=== PATIENT | male | born 1970 | race Native Hawaiian/Other Pacific Islander ===

== ENCOUNTER 2017-10-18 15:02 | Emergency (ER) | payer OTHER ==
[~2017-10-18] VITALS: Ht 185.4 cm; Wt 131.5 kg
[2017-10-18 15:05] VITALS: TEMP 98.1
[2017-10-18 15:26] LABS: PLATELET COUNT 188 K/uL (142-355)
[2017-10-18 15:32] LABS: POTASSIUM 3.8 mmol/L (3.6-5.2); SODIUM 136 mmol/L (136-145)
[2017-10-18] MEDS ORDERED: CALAN SR120 MG PO (15:34)
[2017-10-18] MEDS ORDERED: ASPIR-8181 MG PO (15:35)
[2017-10-18] MEDS ORDERED: CLON0.1T16 PO (15:36)
[2017-10-18] MEDS ORDERED: LOVASTATIN20 MG OR (15:36)
[2017-10-18] MEDS ORDERED: METFORMIN HYDR850 MG PO (15:37)
[2017-10-18] MEDS ORDERED: LISI20TA11 PO (15:38)
[2017-10-18] MEDS ORDERED: LISITAB PO ×2 (15:38→15:39)
[2017-10-18 15:46] LABS: PARTIAL THROMBOPLASTIN TIME 28.1 SECONDS (24.5-33.6)
[2017-10-18 17:26] VITALS: BP 113/55
== END 2017-10-18 17:26 | disposition home or self-care (01) ==
LOC: ED 15:02
PROVIDERS: Family Medicine
DX: I48.91 Unspecified atrial fibrillation (principal); I48.92 Unspecified atrial flutter
CPT/HCPCS: 36415; 80053; 84443; 84484; 85027; 85610; 85730; 93005; 96372; 96374; 96375; 99284; J1650; J2175; J2405; J3490

== ENCOUNTER 2017-10-23 15:09 | Outpatient (CLI) | payer OTHER ==
[~2017-10-23 15:09] MED LIST: ASPIR-8181 MG PO; CALAN SR120 MG PO; CLON0.1T16 PO; LISI20TA11 PO; LISITAB PO; LOVASTATIN20 MG OR; METFORMIN HYDR850 MG PO
== END 2017-10-23 15:13 | disposition short-term general hospital (02) ==
LOC: AMB 15:09
DX: S01.01XA Laceration without foreign body of scalp, initial encounter (principal); V59.49XA Driver of pick-up truck or van injured in collision with other motor vehicles in traffic accident, initial encounter; Y92.488 Other paved roadways as the place of occurrence of the external cause
CPT/HCPCS: A0425; A0427

== ENCOUNTER 2017-10-23 15:28 | Emergency (ER) | payer OTHER ==
[~2017-10-23] VITALS: Ht 185.4 cm; Wt 108.9 kg
[2017-10-23 19:06] VITALS: BP 190/96; TEMP 98.4
== END 2017-10-23 19:10 | disposition home or self-care (01) ==
LOC: ED 15:28
PROC: 0HQ0XZZ Repair Scalp Skin, External Approach (ICD-10-PCS; principal; 2017-10-23)
DX: S00.93XA Contusion of unspecified part of head, initial encounter (principal); S01.01XA Laceration without foreign body of scalp, initial encounter; S16.1XXA Strain of muscle, fascia and tendon at neck level, initial encounter; V43.62XA Car passenger injured in collision with other type car in traffic accident, initial encounter
CPT/HCPCS: 96372; 99283; J1885

== ENCOUNTER 2018-01-15 14:45 | Emergency (ER) | payer OTHER ==
[~2018-01-15] VITALS: Ht 185.4 cm; Wt 113.4 kg
[2018-01-15 15:33] LABS: POTASSIUM 3.4 mmol/L (3.6-5.2)
[2018-01-15 15:37] LABS: PLATELET COUNT 171 K/uL (142-355)
[2018-01-15 19:31] VITALS: BP 156/81; TEMP 99.1
== END 2018-01-15 19:25 | disposition home or self-care (01) ==
LOC: ED 14:45
PROVIDERS: Specialist
DX: Z87.81 Personal history of (healed) traumatic fracture (principal); S20.219A Contusion of unspecified front wall of thorax, initial encounter
CPT/HCPCS: 36415; 36600; 80048; 82550; 82553; 82805; 83735; 84100; 84484; 85027; 85379; 93005; 99283

== ENCOUNTER 2018-11-07 10:02 | Emergency (ER) | payer OTHER ==
[~2018-11-07] VITALS: Ht 182.9 cm; Wt 111.1 kg
[2018-11-07] MEDS ORDERED: METFORMIN HYDR850 MG PO (10:24)
[2018-11-07] MEDS ORDERED: LISI20TA31 PO (10:26)
[2018-11-07 10:49] LABS: PLATELET COUNT 242 K/uL (142-355)
[2018-11-07 10:51] LABS: POTASSIUM 3.4 mmol/L (3.6-5.2)
[2018-11-07 11:10] LABS: PARTIAL THROMBOPLASTIN TIME 30.3 SECONDS (24.5-33.6)
[2018-11-07 12:05] VITALS: BP 143/77; TEMP 97.8
== END 2018-11-07 12:05 | disposition home or self-care (01) ==
LOC: ED 10:02
PROVIDERS: Emergency Medicine
DX: I47.1 Supraventricular tachycardia (principal)
CPT/HCPCS: 36415; 80053; 80307; 81000; 82550; 84484; 85027; 85610; 85730; 93005; 96360; 99284; J0153

== ENCOUNTER 2019-05-17 03:38 | Inpatient (IN) | payer OTHER ==
[~2019-05-17] VITALS: Ht 182.9 cm; Wt 107.0 kg
[2019-05-17] VITALS (56 sets, daily range): BP systolic 113–164; BP diastolic 59–113; TEMP 97.3–98.7; Ht 182.9 cm; Wt 107.0 kg
[~2019-05-17 03:38] MED LIST changes: +LISI20TA31 PO
[2019-05-17 04:21] LABS: PLATELET COUNT 191 K/uL (142-355)
[2019-05-17 04:32] LABS: POTASSIUM 3.3 mmol/L (3.6-5.2); SODIUM 140 mmol/L (136-145)
[2019-05-17 06:00] LABS: PARTIAL THROMBOPLASTIN TIME 26.4 SECONDS (24.5-33.6)
[2019-05-18] VITALS (16 sets, daily range): BP systolic 135–189; BP diastolic 69–105; TEMP 98.3–98.8
[2019-05-18 08:13] LABS: PLATELET COUNT 158 K/uL (142-355)
[2019-05-18 08:19] LABS: POTASSIUM 4.4 mmol/L (3.6-5.2)
== END 2019-05-18 17:50 | disposition left against medical advice (07) | DRG 310 ==
LOC: ED 03:38 → ICU 04:30 → MED/SURG 04:31 → ICU 04:32
PROVIDERS: Emergency Medicine; ADMIT Internal Medicine
DX: I48.91 Unspecified atrial fibrillation (principal); R07.89 Other chest pain; I25.2 Old myocardial infarction; I25.10 Atherosclerotic heart disease of native coronary artery without angina pectoris; I10 Essential (primary) hypertension; E11.9 Type 2 diabetes mellitus without complications
CPT/HCPCS: 36415; 80053; 82550; 83735; 84443; 84484; 85007; 85027; 85610; 85730; 93005; 96365; 96372; 96374; 96376; 99285; J3475; J3490

== ENCOUNTER 2019-11-03 22:25 | Observation (INO) | payer OTHER ==
[~2019-11-03] VITALS: Ht 182.9 cm; Wt 107.3 kg
[2019-11-03 22:32] VITALS: BP 153/98
[2019-11-03 23:00] VITALS: BP 157/83
[2019-11-03 23:06] LABS: PLATELET COUNT 166 K/uL (142-355)
[2019-11-03 23:09] LABS: POTASSIUM 3.7 mmol/L (3.6-5.2)
[2019-11-03 23:28] LABS: PARTIAL THROMBOPLASTIN TIME 27.6 SECONDS (24.5-33.6)
[2019-11-03 23:30] VITALS: BP 143/72
[2019-11-04] VITALS (8 sets, daily range): BP systolic 131–166; BP diastolic 63–97; TEMP 98–99.1; Ht 182.9 cm; Wt 107.3 kg
[2019-11-04] MEDS ORDERED: LISI20TA31 PO (03:20)
--- NOTE | 2019-11-04 03:20 | NUR ---
11/04/2019 0215 PT TO ROOM 1112 DX CHESTPAIN,PALPATATIONS WITH RVR.ORIENTED TO ROOM.CALL LIGHT WITHIN REACH.GIRLFRIEND PRESENT IN ROOM.20 GAUDGE INTACT TO RT ARM.CC
--- NOTE | 2019-11-04 05:13 | NUR ---
11/04/2019 RESTING ON LEFT SIDE WITH GIRLFRIEND BESIDE HIM RESP EVEN NONLABORED NAD NOTED.CALL LIGHT WITHIN REACH.
--- NOTE | 2019-11-04 07:16 | NUR ---
PATIENT WAS ADMITTED WITH CHEST PAIN, PALPITATIONS W RVR AND IS ON A 2 GM NA 1800 CALORIE DIET PLAN AND IS 6' AT 236.9 LBS. 49YOM, WITH A HISTORY OF DMII, UNCONTROLLED, HTN, AFIB, CONTUSION,, STRAIN OF JENNIFER, SCALP LACERATION, MIGRAINES, BUN, GL, T BILIRUBIN AND TROONIN ALL ELEVATED, REVIEWED ALL LABS, CARDIAC CATH, HEART ATTACH AND STENTS. IBW-178+/-10% (160 TO 196 LBS.) AND KCAL NEEDS X 25 TO 30 = 2000 TO 2400 AND UP TO X 40 = 3200 KCAL/DAY, PROTEIN NEEDS X 1.2 TO 1.5 = 97 TO 121 GRAMS A DAY AND FLUIDS FOR WEIGHT X 25 TO 30 = 2700 TO 3200 ML PER DAY BUT SINCE CARDIAC DX. MD SHOULD ORDER THE FLUIDS NEEDED. BMI = 32 CLASS I OBESITY AD IS 133% IBW. RECOMENDATIONS: 1-ADD VITAMIN C 500 MG BID 2-ADD ZNSO4 220 MG PER DAY AND D/C IN 14 DAYS 3-ADD CARDIAC TO DIET PLAN AND HIGH FIBER 4-INCREASE CALOREIS TO A MINIMUM OF 2000 CALORIES A DAY.
--- NOTE | 2019-11-04 09:00 | NUR ---
PATIENT UP IN ROOM, STATES "FEELING BETTER " HR 80'S A FIB. RECIEVED AM MEDS ORDERED. BLOOD SUGAR 196 DR DAS VISITED THIS AM.
--- NOTE | 2019-11-04 13:00 | NUR ---
UP IN ROOM ATE LUNCH, BLOOD SUGAR [address] DAS WILL ORDERS SLIDING SCALE INSULIN. PATIENT RESTING IN BED HOB UP WATCHING TV FAMILY MEMBERS ALSO RESTING IN BED.
--- NOTE | 2019-11-04 15:00 | NUR ---
REGULAR INSULIN SSI PULLED TO GIVE TO PATIENT EXPLAINED INSULIN TO PATIENT PATIENT STATED THAT HE HAD TAKEN HIS METFORMIN, WANTED TO WAIT AND RECHECK HIS BLOOD LATER BEFORE TAKING INSULIN. INSULIN HELD FOR NOW.
--- NOTE | 2019-11-04 15:26 | NUR ---
NOTED ON MONITOR PT HAD CONVERTED APPEARS NSR. EKG ORDERED. NO COMPLAINTS OF PAIN.
--- NOTE | 2019-11-04 18:02 | NUR ---
RECIEVED ORDERS FOR DISCHARGE, MADE COPIES DISCHARGE INSTRUCTIONS, PATIENT UP IN [place] GOING HOME WITH FAMILY MEMBERS REVIEWED DISCHARGE ORDERS WITH PATIENT WALKING DOWN [place] DISCHARGED HOME VIA PRIVATE CAR WITH FAMILY MEMBERS.
== END 2019-11-04 18:00 | disposition home or self-care (01) ==
LOC: ED 22:25 → MED/SURG 11-04 01:02
PROVIDERS: Family Medicine; ADMIT Internal Medicine Endocrinology, Diabetes & Metabolism
DX: I48.91 Unspecified atrial fibrillation (principal); I10 Essential (primary) hypertension; I25.10 Atherosclerotic heart disease of native coronary artery without angina pectoris; E11.65 Type 2 diabetes mellitus with hyperglycemia; Z72.0 Tobacco use
CPT/HCPCS: 80053; 81000; 82550; 84484; 85027; 85379; 85610; 85730; 93005; 94760; 96372; 96374; 99220; 99284; G0378; J1650; J1815; J3490

== ENCOUNTER 2020-01-04 22:27 | Observation (INO) | payer OTHER ==
[~2020-01-04] VITALS: Ht 182.9 cm; Wt 104.5 kg
[2020-01-04 22:42] VITALS: BP 222/123; TEMP 98.8
[2020-01-04] MEDS ORDERED: METOPROLOL25 M1 PO (22:44)
[2020-01-04 23:05] VITALS: BP 212/120
[2020-01-04 23:15] LABS: PLATELET COUNT 175 K/uL (142-355)
[2020-01-04 23:20] VITALS: BP 190/105
[2020-01-04 23:20] LABS: POTASSIUM 3.6 mmol/L (3.6-5.2); SODIUM 140 mmol/L (136-145)
[2020-01-04 23:45] VITALS: BP 157/81
[2020-01-05 00:38] VITALS: BP 143/77; TEMP 98.5
[2020-01-05] MEDS ORDERED: METOPROLOL25 M1 PO (02:35)
[2020-01-05] MEDS ORDERED: LISI20TA31 PO (02:37)
[2020-01-05 02:52] VITALS: BP 143/77; TEMP 98.5; Ht 182.9 cm; Wt 104.5 kg
[2020-01-05 04:00] VITALS: BP 128/68; TEMP 98.9
[2020-01-05 08:00] VITALS: BP 122/72; TEMP 98.6
[2020-01-05 12:00] VITALS: BP 134/75; TEMP 98.7
[2020-01-05 16:00] VITALS: BP 140/81; TEMP 98.8
== END 2020-01-05 17:45 | disposition home or self-care (01) ==
LOC: ED 22:27 → MED/SURG 23:30
PROVIDERS: Hospitalist; ADMIT Internal Medicine Endocrinology, Diabetes & Metabolism
DX: R07.89 Other chest pain (principal); I10 Essential (primary) hypertension; E11.9 Type 2 diabetes mellitus without complications; K29.60 Other gastritis without bleeding; I48.91 Unspecified atrial fibrillation; E78.49 Other hyperlipidemia; M15.8 Other polyosteoarthritis
CPT/HCPCS: 80053; 80061; 82550; 83880; 84484; 85027; 85610; 85730; 93005; 94760; 96374; 96375; 99220; 99284; G0378; J0360; J1650; J1815; J2405

== ENCOUNTER 2020-06-16 22:14 | Emergency (ER) | payer OTHER ==
[~2020-06-16] VITALS: Ht 185.4 cm; Wt 111.1 kg
[~2020-06-16 22:14] MED LIST changes: +METOPROLOL25 M1 PO
[2020-06-16 22:18] VITALS: TEMP 98.3
[2020-06-16 22:51] LABS: SODIUM 136 mmol/L (136-145)
[2020-06-16 22:59] LABS: PLATELET COUNT 189 K/uL (142-355)
[2020-06-16 23:01] VITALS: BP 179/105
[2020-06-16 23:12] LABS: PARTIAL THROMBOPLASTIN TIME 27.9 SECONDS (24.5-33.6)
[2020-06-17] MEDS ORDERED: VERA120T22 PO (05:14)
[2020-06-17] MEDS ORDERED: LISI20TA11 PO (05:26)
== END 2020-06-16 23:13 | disposition home or self-care (01) ==
LOC: ED 22:14
PROVIDERS: Hospitalist
DX: I20.8 Other forms of angina pectoris (principal); E87.6 Hypokalemia; F10.129 Alcohol abuse with intoxication, unspecified; Y90.7 Blood alcohol level of 200-239 mg/100 ml; F17.210 Nicotine dependence, cigarettes, uncomplicated
CPT/HCPCS: 36415; 80053; 80320; 82550; 83880; 84484; 85027; 85610; 85730; 93005; 96365; 99284; J3411; J3475; J3490

== ENCOUNTER 2020-06-17 00:08 | Observation (INO) | payer OTHER ==
[~2020-06-17] VITALS: Ht 185.4 cm; Wt 101.7 kg
[2020-06-17 00:08] VITALS: BP 167/89; TEMP 98.3
[2020-06-17 04:00] VITALS: BP 137/75; TEMP 98.6
[2020-06-17 05:03] VITALS: BP 146/87; TEMP 98.2; Ht 185.4 cm; Wt 101.7 kg
[2020-06-17] MEDS ORDERED: VERA120T22 PO (05:14)
[2020-06-17] MEDS ORDERED: LISI20TA11 PO (05:26)
[2020-06-17 08:00] VITALS: BP 127/82; TEMP 98.3
== END 2020-06-17 15:10 ==
LOC: ED 00:08 → MED/SURG 01:20
PROVIDERS: ADMIT Internal Medicine
DX: R07.89 Other chest pain (principal); I48.91 Unspecified atrial fibrillation; I25.10 Atherosclerotic heart disease of native coronary artery without angina pectoris; I10 Essential (primary) hypertension; E11.9 Type 2 diabetes mellitus without complications
CPT/HCPCS: 82550; 84484; 93005; 96365; 96366; 96375; 99220; 99284; G0378; J1885; J2270; J3411; J3475; J3490; Q9963

== ENCOUNTER 2021-11-26 23:25 | Emergency (ER) | payer OTHER ==
[~2021-11-26] VITALS: Ht 185.4 cm; Wt 108.9 kg
[~2021-11-26 23:25] MED LIST changes: +VERA120T22 PO
[2021-11-26 23:30] VITALS: TEMP 98
[2021-11-26 23:43] LABS: PLATELET COUNT 175 K/uL (142-355)
[2021-11-26 23:48] LABS: POTASSIUM 3.3 mmol/L (3.6-5.2)
[2021-11-27 00:01] LABS: PARTIAL THROMBOPLASTIN TIME 26.4 SECONDS (24.5-33.6)
[2021-11-27 00:40] VITALS: BP 114/59
== END 2021-11-27 00:45 | disposition home or self-care (01) ==
LOC: ED 23:25
PROVIDERS: Hospitalist
DX: I20.0 Unstable angina (principal); I48.20 Chronic atrial fibrillation, unspecified; F10.20 Alcohol dependence, uncomplicated; Y90.4 Blood alcohol level of 80-99 mg/100 ml; E87.6 Hypokalemia; Z11.52 Encounter for screening for COVID-19; I10 Essential (primary) hypertension; F17.210 Nicotine dependence, cigarettes, uncomplicated
CPT/HCPCS: 80053; 80320; 82550; 83880; 84484; 85027; 85610; 85730; 87635; 93005; 96365; 96375; 96376; 99284; J1644; J2405; J3490; U0003

== ENCOUNTER 2023-04-16 08:59 | Outpatient (CLI) | payer OTHER | END 2023-04-16 20:24 | disposition home or self-care (01) | LOC: RAD 08:59 | PROVIDERS: ATTEND Internal Medicine | DX: Z02.71 Encounter for disability determination (principal) ==

== ENCOUNTER 2023-04-26 09:14 | Outpatient (CLI) | payer OTHER | END 2023-04-26 23:58 | disposition home or self-care (01) | LOC: US 09:14 | PROVIDERS: ATTEND Nurse Practitioner Acute Care | DX: I10 Essential (primary) hypertension (principal) ==

== ENCOUNTER 2023-04-28 09:14 | Outpatient (CLI) | payer OTHER ==
[2023-04-28 09:41] LABS: POTASSIUM 4.1 mmol/L (3.6-5.2)
== END 2023-04-28 19:17 | disposition home or self-care (01) ==
LOC: LABW 09:14
PROVIDERS: ATTEND Nurse Practitioner Acute Care
DX: I10 Essential (primary) hypertension (principal)
CPT/HCPCS: 36415; 80053; 83735